=== PATIENT | male | born 1965 | race Caucasian/White ===

== ENCOUNTER 2020-07-12 16:00 | Inpatient (IN) ==
[2020-07-12 18:05] LABS: ABS Basophils 0.1 10^3/ul (0-0.2); ABS Eosinophils 0.1 10^3/ul (0-0.6); ABS Lymphocytes 1.6 10^3/ul (1.0-4.8); ABS Monocytes 0.7 10^3/ul (0-0.8); ABS Neutrophils 4.6 10^3/ul (1.5-7.7); Hematocrit 42 % (42-52); Hemoglobin 14.1 g/dL (14.0-18.0); Lymphocyte % 22.2 %; Mean Corpuscular HGB Conc 34 g/dL (31-36); Mean Corpuscular Hemoglobin 29 pg (27-31); Mean Corpuscular Volume 85 fL (80-94); Mean Platelet Volume 10.4 fL (7.4-10.4); Platelet Count 149 10^3/uL (150-450); Red Blood Count 4.92 10^6 /uL (4.18-5.48); Red Cell Distribution Width 14 % (10-15); White Blood Count 7.1 10^3/uL (3.5-10.8)
[2020-07-12 18:50] LABS: TSH Ultra Thyroid Stim Horm 1.4 mcIU/mL (0.34-5.60)
[2020-07-12 19:18] LABS: Calcium 9.9 mg/dL (8.6-10.3); Potassium 4.1 mmol/L (3.5-5.0); Total Bilirubin 0.7 mg/dL (0.2-1.0)
[2020-07-12 19:21] LABS: Troponin I 0.01 ng/mL (<0.03)
[2020-07-12 19:24] LABS: Albumin/Globulin Ratio 1.4 (1-3); BUN/Creatinine Ratio 14.1 (8-20); EGFR Non-African American 103.3 (>60); Globulin 2.9 g/dL (2-4); Total Protein 6.9 g/dL (6.4-8.9)
[2020-07-12] MEDS ORDERED: Iohexol 300 (CONTRAST) 10 ML SDV IV SCH (19:38)
[2020-07-12] MEDS ORDERED: Dextrose 50% Syringe 50 ml 25 GM/50 ML SYRINGE IV PUSH PRN (19:39)
[2020-07-12] MEDS ORDERED: Iodixanol (CONTRAST) 320 MG/ML 100 ML SDV IV ONE (20:00)
[2020-07-12] MEDS ORDERED: Iodixanol (CONTRAST) 320 MG/ML 100 ML SDV IV SCH (21:00)
[2020-07-13] MEDS ORDERED: Perflutren Lipid Microsphere 3 ML VIAL ONE (09:54)
[2020-07-13] MEDS ORDERED: Enoxaparin 40 MG/0.4 ML SYR SUBCUT SCH (10:00)
[2020-07-15 13:05] VITALS: BP 157/88
== END 2020-07-15 15:45 | disposition home or self-care (01) | DRG 45 ==
LOC: MEDTELE 16:30
PROVIDERS: ADMIT Hospitalist; ATTEND Internal Medicine